=== PATIENT | male | born 1965 | race Asian ===

== ENCOUNTER 2017-01-12 05:48 | Day surgery (SDC) | payer OTHER ==
[~2017-01-12] VITALS: Ht 152.4 cm; Wt 65.9 kg
[2017-01-12 06:46] VITALS: Ht 152.4 cm; Wt 65.9 kg
[2017-01-12] MEDS ORDERED: METFORMIN (06:48)
[2017-01-12] MEDS ORDERED: LISINOPRIL (06:48)
[2017-01-12] MEDS ORDERED: GLIMEPIRIDE (06:48)
[2017-01-12 07:14] VITALS: BP 137/92; PULSE 71; RESP 17
--- NOTE | 2017-01-12 07:40 | OPPN ---
Date/Time of Note Date/Time of Note DATE: 01/12/17 TIME: 07:38 Operative Report Preoperative Diagnosis Chronic heartburn Postoperative Diagnosis Reflux esophagitis Gastritis with erosions Operation/Procedure Performed Esophagogastroduodenoscopy and biopsy Surgeon see signature line therapy administrative assistant None Anesthesia: moderate sedation Estimated blood loss: none Transfusion Required none Specimen Gastric mucosal biopsy Grafts/Implants none Complications none IDRIS MARIANO MD Jan 12, 2017 07:40
[2017-01-12] MEDS ORDERED: MIDAZOLAM 1 MG/ML 2 ML INJ ONE (07:50)
[2017-01-12] MEDS ORDERED: FENTAnyl 50 MCG/ML VIAL ONE (07:50)
[2017-01-12 08:06] VITALS: BP 119/82; PULSE 83; RESP 14
--- NOTE | 2017-01-13 07:20 | GILP ---
DATE OF PROCEDURE: NAME OF PROCEDURES: Esophagogastroduodenoscopy and biopsy. SURGEON: Idris Valenzuela MD. PREOPERATIVE DIAGNOSES: 1. Chronic heartburn. 2. Noncardiac chest pain. POSTOPERATIVE DIAGNOSES: 1. Reflux esophagitis. 2. Gastritis with erosions. 3. Gastric mucosal biopsies were taken for Helicobacter pylori test. INDICATION FOR THE PROCEDURE: Mr. Alejandro Mata is a 51-year-old male patient who had chronic heartbu rn and noncardiac chest pain, not responding to therapy. The patient was scheduled for endoscopic e xamination for further evaluation. The procedure and possible complications were well explained to the patient. He understood and cons ented to the procedure. DESCRIPTION OF PROCEDURE: Under the influence of fentanyl and Versed, the gastroscope was carefully introduced into the esophagus, and under direct vision, it was advanced to the stomach and through the pylorus into the duodenal bulb and descending duodenum. FINDINGS: ESOPHAGUS: The patient had reflux esophagitis with erosions. STOMACH: The patient had gastritis with erosions. Gastric mucosal biopsies were taken for H. pylor i test. DUODENUM: Normal. He tolerated the procedure very well and there was no complication from the procedure. At the end o f the procedure, he was awake with stable vital signs, and he was discharged home to the care of his family. IMPRESSION: Please see postoperative diagnoses. PLAN: 1. Omeprazole 40 mg p.o. q.a.m. 2. Await H. pylori test report. Dictated By: IDRIS HENRY/ANA LAURA Conf#: [id number] DID#: [id number]
== END 2017-01-12 13:48 | disposition home or self-care (01) ==
LOC: GIL 05:48 → EDBD 07:00 → GIL 13:48
PROVIDERS: ATTEND Internal Medicine Gastroenterology
DX: K21.0 Gastro-esophageal reflux disease with esophagitis (principal); K29.70 Gastritis, unspecified, without bleeding
CPT/HCPCS: 43239; 82962; 87081; J2250; J3010; Z7610